=== PATIENT | male | born 1990 | race Caucasian/White ===

== ENCOUNTER 2024-12-04 21:12 | Emergency (ER) | payer OTHER, SELFPAY ==
[2024-12-04 21:15] VITALS: BP 136/91
[2024-12-04 21:30] LABS: % Basophils 0.4 % (0-2); % Eosinophils 0.2 % (0-6); % Immature Granulocytes 0.2 % (0-0.5); % Lymphocytes 7.3 % (20.5-51.1); % Monocytes 6.4 % (1.7-9.3); % Neutrophils 85.5 % (42.2-75.2); Absolute Basophils 0.1 10^3/uL (0-0.2); Absolute Lymphocytes 0.9 10^3/uL (1.2-3.4); Absolute Monocytes 0.8 10^3/uL (0.1-0.6); Hematocrit 42.3 % (39.0-52.0); Hemoglobin 15.2 g/dL (13.0-18.0); Mean Corp Hgb Conc. 35.9 g/dL (33.0-37.0); Mean Corpuscular Hgb 32.4 pg (27.0-31.0); Mean Corpuscular Volume 90.2 fL (80.0-94.0); Mean Platelet Volume 8.9 fL (7.4-10.4); Nucleated Red Blood Cells % 0 % (-); Platelet Count 288 10^3/uL (130-400); Red Blood Cell Count 4.69 10^6/uL (4.70-6.10); Red Cell Dist. Width 12.5 % (11.5-14.5); White Blood Cell Count 12.9 10^3/uL (4.8-10.8)
[2024-12-04 21:45] LABS: ALT (SGPT) 148 U/L (0-50); AST (SGOT) 60 U/L (17-59); Albumin 5.4 g/dl (3.5-5.0); Alkaline Phosphatase 121 U/L (38-126); Blood Urea Nitrogen 12 mg/dl (9-20); Calcium 10.1 mg/dl (8.4-10.2); Carbon Dioxide 28 mmol/L (22-30); Chloride 101 mmol/L (98-107); Glucose 104 mg/dl (70-99); Potassium 4.2 mmol/L (3.5-5.1); Sodium 140 mmol/L (135-145); Total Bilirubin 0.8 mg/dl (0.2-1.3); eGFR > 60.00
[2024-12-04 21:49] VITALS: BP 150/90
[2024-12-04 21:57] LABS: NT-proBNP < 20.0 pg/ml; Troponin I < 0.012 ng/ml
[2024-12-04 22:00] VITALS: BP 150/99
[2024-12-04 23:00] VITALS: BP 147/96
--- NOTE | 2024-12-04 23:13 | ED.GENMED ---
History of Present Illness
General
Chief Complaint: Heart Rate Problem
Time Seen by Provider: 12/04/24 21:51
History of Present Illness
History of Present Illness:
34-year-old male with no past medical history presents to the emergency department for evaluation of sudden onset of heart palpitations developing while seated and watching TV. Symptoms lasted approximately 20 to 30 minutes before resolving
spontaneously. He states that he felt chills during that time however does not feel the symptoms currently. He did monitor his heart rate on his Apple Watch which was reading as high as 180 bpm and also reportedly used a family members [employer]
mobile which informed him that there is no evidence of atrial fibrillation. He denies any objective or subjective fevers, denies any chest pain or shortness of breath, denies any stimulant use. He does take Adderall but this is not a new
medication for him.
Past History
Past History
ED Past Medical History: None and Psychiatric
ED Past Surgical History: None
Patient has exhibited threatening behavior?: No
Social History
Tobacco: Non-smoker
Personal: Single
Living: with family
Employment: Employed
Review of Systems
Review of Systems
Allergies reviewed?: Yes
All Other Systems: ROS reviewed and negative except as documented in HPI and ROS
Phy Exam
Physical Exam
Physical Exam:
GEN: Well appearing, NAD, WDWN
HEENT: Oral mucosa moist, no scleral icterus
Cardiac: Tachycardic/regular, no murmur
Lung: No respiratory distress, no tachypnea
MSK: No gross deformity or injuries
Skin: Good color, no pallor or jaundice, no rashes
Neuro: AO x3, moves all extremities freely
Psych: Calm, cooperative
Course
Orders/Labs/Results
Orders:
Orders
12/04/24 21:13
Electrocardiogram (*1) Urgent
Reason for Study: Other
Other Reason for Exam: Respiratory Distress
Cardiac Monitoring- Treatment ONCE
EKG- Treatment ONCE
IV Insert/Care/Rem.- Treatment PRN
CR Chest - 2 Views Urgent
Comment:
Reason For Exam: respiratory distress
O2 Therapy [RESP] Urgent
Titrate/Wean O2 to maintain O2 sat greater than (%): 93
Special Instructions: TO MAINTAIN CONTINUOUS O2 SATS >/= 93%
Pulse Ox/cont/shift [RESP] Urgent
Quantity: 1
Special Instructions: continuous pulse ox
12/04/24 21:24
Complete Blood Count/With Diff Urgent
Comprehensive Metabolic Panel Urgent
NT-proBNP Urgent
TSH Reflex To Free T4 Urgent
Comment: ADD ON
Troponin I Urgent
12/04/24 22:09
Add On- LAB Urgent
Tests Added?: TSH w reflex
Abnormal Lab Results
12/04/24
21:24
WBC 12.9 H 10^3/uL
(4.8-10.8)
RBC 4.69 L 10^6/uL
(4.70-6.10)
MCH 32.4 H pg
(27.0-31.0)
Absolute Neuts (auto) 11.0 H 10^3/uL
(1.4-6.5)
Absolute Lymphs (auto) 0.9 L 10^3/uL
(1.2-3.4)
Absolute Monos (auto) 0.8 H 10^3/uL
(0.1-0.6)
Neutrophils % 85.5 H %
(42.2-75.2)
Lymphocytes % 7.3 L %
(20.5-51.1)
Glucose 104 H mg/dl
(70-99)
AST 60 H U/L
(17-59)
ALT 148 H U/L
(0-50)
Albumin 5.4 H g/dl
(3.5-5.0)
12/04/24 21:24
12/04/24 21:24
Vital Signs
Initial and Last Documented VS:
Initial Vital Signs
Temp Pulse Resp BP Pulse Ox
100.8 F H 130 16 136/91 97
12/04/24 21:15 12/04/24 21:15 12/04/24 21:15 12/04/24 21:15 12/04/24 21:15
Last Documented Vital Signs
Temp Pulse Resp BP Pulse Ox
99.3 F 108 22 147/96 97
12/04/24 22:20 12/04/24 23:00 12/04/24 23:00 12/04/24 23:00 12/04/24 23:00
MDM/Problems Addressed
MDM/Problems Addressed:
Patient with no evidence of further cardiac. Labs are reassuring. Interestingly he was noted to be febrile on arrival however this resolved without antipyretics being given, he has no infectious signs or symptoms at this time. Mild transaminitis
likely due to alcohol intake yesterday. Thyroid test pending at time of discharge, doubt thyroid storm clinic. I suspect this may have been an SVT based on the patient's report of fast heart rates greater than 180, educated on supportive care and
need for follow-up should symptoms persist
*Critical Care Note
Total Time (30-74mins, 75-104mins- exclusive of procedures): Not Applicable
ED Attending Note
-
Portions of this chart may have been created with voice recognition software.� Occasional wrong word or��sound alike� substitutions may have occurred due to the inherent limitations of voice recognition software.
Discharge Plan
Departure
Patient Disposition: Home (Routine Discharge)
Date of Disposition: 12/04/24
Time of Disposition: 23:23
Patient with high blood pressure during this ER visit?: No
Discharge Problem:
Heart palpitations
Instructions: Palpitations (DC)
Prescriptions:
No Action
dextroamphetamine-amphetamine [Adderall] 30 MG tablet
30 mg PO DAILY
Referrals:
Yuli Souza CRNP [Family Provider] -
Activity Restrictions/Additional Instructions:
Avoid excessive use of stimulants or caffeine. Monitor for recurrent symptoms and try to capture the episode on your Apple watch EKG or [employer] mobile. If symptoms become more problematic please follow-up as an outpatient with a flight service agent
however this is not necessary right away
Interventions
Interventions:
*Risk Screen - Suicide Last Done: 12/04/24 21:17
*Neglect/Abuse Screening Last Done: 12/04/24 21:17
ED- Cardiac Assessment Last Done: 12/04/24 22:28
ED- Pulmonary Assessment Last Done: 12/04/24 22:28
Discharge Date and Time
Print Language: CROATIAN
[2024-12-04 23:17] LABS: TSH Reflex To Free T4 0.95 uIU/ml (0.47-4.68)
== END 2024-12-04 23:36 | disposition home or self-care (01) ==
LOC: EMR 21:12
PROVIDERS: EMERGENCY PHYSICIAN Emergency Medicine; FAMILY PHYSICIAN Nurse Practitioner Family
DX: R00.2 Palpitations (principal); R74.01 Elevation of levels of liver transaminase levels; F10.90 Alcohol use, unspecified, uncomplicated
CPT/HCPCS: 99284; 71046; 80053; 83880; 84443; 84484; 85025; 93005

== ENCOUNTER 2025-03-05 15:23 | Day surgery (SDC) | payer OTHER, SELFPAY ==
[2025-03-05] VITALS (9 sets, daily range): BP systolic 115–142; BP diastolic 59–93; BMI 28.0
[2025-03-05 10:00] LABS: Hematocrit 43.2 % (39.0-52.0); Hemoglobin 15.7 g/dL (13.0-18.0); Mean Corp Hgb Conc. 36.3 g/dL (33.0-37.0); Mean Corpuscular Volume 89.4 fL (80.0-94.0); Nucleated Red Blood Cells % 0 % (-); Platelet Count 266 10^3/uL (130-400); Red Cell Dist. Width 12.3 % (11.5-14.5)
--- NOTE | 2025-03-05 10:33 | ED.GENMED ---
History of Present Illness
General
Chief Complaint: Abdominal Symptoms
Source: patient
Exam Limitations: none
Time Seen by Provider: 03/05/25 09:44
Nursing documentation reviewed up to this point in time: agreed with
History of Present Illness
History of Present Illness:
SEE MDM
Past History
Past History
ED Past Medical History: None and Psychiatric
ED Past Surgical History: Other (hernia)
Patient has exhibited threatening behavior?: No
Social History
Tobacco: Non-smoker
Personal: Single
Living: with family
Employment: Employed
Review of Systems
Review of Systems
Allergies reviewed?: Yes
All Other Systems: Not applicable
Phy Exam
Physical Exam
Physical Exam:
see MDM
Course
Orders/Labs/Results
Orders:
Orders
03/05/25 09:52
Complete Blood Count/With Diff Urgent
Comprehensive Metabolic Panel Urgent
Lipase Urgent
03/05/25 10:14
CT Abd/Pel (IV only)-DH only Urgent
Comment:
Reason For Exam: RLQ pain
03/05/25 10:22
0.9% Sodium Chloride 1000 ml [Nss] 1,000 ml IV BOLUS
Morphine Sulfate 4 mg IV NOW STA
03/05/25 11:59
Piperacillin/Tazo 3.375 Gram [Zosyn] 3.375 gram in 50 ml IV NOW
03/05/25 12:28
HYDROmorphone [Dilaudid] 1 mg IV NOW STA
Abnormal Lab Results
03/05/25
09:52
MCH 32.5 H pg
(27.0-31.0)
Absolute Neuts (auto) 8.4 H 10^3/uL
(1.4-6.5)
Absolute Lymphs (auto) 1.0 L 10^3/uL
(1.2-3.4)
Absolute Monos (auto) 0.7 H 10^3/uL
(0.1-0.6)
Neutrophils % 82.5 H %
(42.2-75.2)
Lymphocytes % 9.8 L %
(20.5-51.1)
Glucose 114 H mg/dl
(70-99)
Calcium 10.3 H mg/dl
(8.4-10.2)
AST 61 H U/L
(17-59)
ALT 199 H U/L
(0-50)
Albumin 5.4 H g/dl
(3.5-5.0)
03/05/25 09:52
03/05/25 09:52
Vital Signs
Initial and Last Documented VS:
Initial Vital Signs
Temp Pulse Resp BP Pulse Ox
36.9 C 92 16 135/93 98
03/05/25 09:35 03/05/25 09:35 03/05/25 09:35 03/05/25 09:35 03/05/25 09:35
Last Documented Vital Signs
Temp Pulse Resp BP Pulse Ox
36.9 C 80 16 142/91 99
03/05/25 09:35 03/05/25 12:00 03/05/25 12:00 03/05/25 12:00 03/05/25 12:00
MDM/Problems Addressed
Differential Diagnosis Includes:
see mdm
MDM/Problems Addressed:
Note:
CHIEF COMPLAINT(S)
Abdominal pain.
HISTORY OF PRESENT ILLNESS
The patient is a 34-year-old male who presents with acute onset of abdominal pain, which began at 2 a.m. and woke him up from sleep. The pain has been constant, with intermittent jolts of increased severity. The patient describes the pain as
localized without radiating to the back. He reports experiencing chills last night but no associated fever, nausea, or vomiting. The pain worsens with walking and is uncomfortable to touch the abdomen. He denies diarrhea but notes a sensation of
pressure to urinate without dysuria. The patient rates his pain as severe, describing it as 8 out of 10. He has not taken any medication for the pain.
The patients bowel movements have been described as normal, last bm 4 am. He has a past surgical history of hernia repair but denies any other abdominal surgeries.
tried a dose of pepto this morning without relief
last ate 8 pm last night
SOCIAL HISTORY
no drug/alcohol history
PHYSICAL EXAM
GENERAL: Alert , in no apparent distress
EYE: pupils equal and reactive
NECK: Supple
ENT: o/p clr, mmm.
CARDIAC: Regular rate and rhythm .
LUNGS: Clear breath sounds bilaterally, no acute respiratory distress, no wheezes/rales/rhonchi
ABDOMEN:SOFT, MILD DISTENSION, TENDER RLQ SIGNIFICANTLY; + ROSVIGS; MILD GUARDING; NORMAL BOWEL SOUNDS
NEUROLOGICAL: Alert and oriented, no focal neuro deficits
SKIN: Warm and dry, skin intact.
MUSCULOSKELETAL: No edema, well perfused.
PSYCH: Normal and appropriate interaction.
PROBLEM LIST
Acute: Abdominal pain, likely appendicitis.
Chronic: History of hernia repair.
PLAN
1. Initiate IV fluids for hydration.
2. Administer pain management, considering stronger analgesics such as morphine or hydromorphone.
3. Order a computed tomography scan of the abdomen to further investigate the cause of pain, with attention to ruling out appendicitis.
4. The patient is to remain nil per os (nothing by mouth) in preparation for potential surgical intervention pending diagnostic results.
DIFFERENTIAL DIAGNOSIS
The Differential Diagnosis includes, in no particular order and is not limited to:
1. Appendicitis
2. Gastroenteritis
3. Peptic ulcer disease
4. Pancreatitis
5. Urinary tract infection
6. Diverticulitis
7. Gallstones
8. Hernia
9. Inflammatory bowel disease
10. Constipation
CT shows early acute appendicitis
d/w dr. amaya from surgery who saw pt and will admit
zosyn
*Pulse Oximetry
SaO2: 98
Oxygen Mode of Delivery: Room air
Patient hypoxic: no (99)
*Critical Care Note
Total Time (30-74mins, 75-104mins- exclusive of procedures): Not Applicable
ED Attending Note
-
Portions of this chart may have been created with voice recognition software.� Occasional wrong word or��sound alike� substitutions may have occurred due to the inherent limitations of voice recognition software.
Discharge Plan
Departure
Patient Disposition: Admit
Date of Disposition: 03/05/25
Time of Disposition: 12:58
Admit to: Med/Surg
Admit to doctor: monique
Presentation/result/management discussed w/ accepting MD/DO: monique
Patient with high blood pressure during this ER visit?: No
Condition: Fair
Covid-19: Not Applicable
Discharge Problem:
Acute appendicitis
Prescriptions:
No Action
dextroamphetamine-amphetamine [Adderall] 30 MG tablet
30 mg PO MOTUWETHFR
Referrals:
Yuli Souza CRNP [Family Provider, Family Practice]
Interventions
Interventions:
*Risk Screen - Suicide Last Done: 03/05/25 09:35
*General Assessment Last Done: 03/05/25 09:52
*Neglect/Abuse Screening Last Done: 03/05/25 09:35
DO-Egylwn-Kftkgyphsj Assessment Last Done: 03/05/25 09:51
Discharge Date and Time
Print Language: ISRAELI
[2025-03-05] MEDS: MORPHINE SULFATE 4 MG IV (10:38)
[2025-03-05] MEDS: NSS 1000 IV ×2 (10:39→19:18)
[2025-03-05 10:43] LABS: ALT (SGPT) 199 U/L (0-50); AST (SGOT) 61 U/L (17-59); Albumin 5.4 g/dl (3.5-5.0); Alkaline Phosphatase 114 U/L (38-126); Blood Urea Nitrogen 12 mg/dl (9-20); Calcium 10.3 mg/dl (8.4-10.2); Carbon Dioxide 23 mmol/L (22-30); Chloride 106 mmol/L (98-107); Estimated Creatinine Clearance > 125 ml/min; Glucose 114 mg/dl (70-99); Lipase 37 U/L (23-300); Potassium 4.1 mmol/L (3.5-5.1); Sodium 137 mmol/L (135-145); Total Protein 8.1 g/dl (6.3-8.2); eGFR > 60.00
[2025-03-05] MEDS: DILAUDID 1 MG IV (12:33)
[2025-03-05] MEDS: ZOSYN 50 IV (12:38)
--- NOTE | 2025-03-05 12:47 | HPS.HSE ---
Family Physician
-
Family Physician: ANGELY Castellano
Chief Complaint
-
RLQ pain
History of Present Illness
This is a 34 yo male with a h/o inguinal hernia repair at the age of 6 who presents with abdominal pain which began around 2am awakening him from sleep with chills. He notes the pain was more central but then localized to the RLQ. He denies
associated nausea or vomiting. He does note abdominal bloating. He tried Pepto Bismol without much benefit as was able to have a BM around 4am without relief either. On exam, he is markedly tender to the RLQ.
Medical History
Past Medical History
Past Medical History: Reports Psychiatric (ADD)
Past Surgical History: Reports Other (Inguinal hernia repair 1995)
Social History
Tobacco: Non-smoker
Alcohol: None
Personal: Partner
Living: Other (with significant other)
Employment: Employed
Family History
Family History: Not pertinent
Allergies / Home Medications
Allergies reflects when Allergies were last updated in [employer].
Home Medications with original date entered in [employer]
Allergy/Medication List:
Patient Allergies
Allergy/AdvReac Type Severity Reaction Status Date / Time
No Known Allergies Allergy Verified 03/05/25 09:37
�Medication �Instructions �Recorded �Confirmed �Type
dextroamphetamine-amphetamine 30 30 mg PO MOTUWETHFR 06/25/18 03/05/25 History
mg tablet (Adderall)
Review of Systems
-
History Source: Patient
A 12 point ROS was completed and negative except as noted: Yes
Physical Exam
Vital Signs
Vital Signs
Temp Pulse Resp BP Pulse Ox
98.4 F 80 16 142/91 99
03/05/25 09:35 03/05/25 12:00 03/05/25 12:00 03/05/25 12:00 03/05/25 12:00
Physical Exam
General: Well Developed and Well Nourished
HEENT: Moist mucous membranes
Respiratory: Non Labored Respirations
GI: Soft, Tender (RLQ with guarding) and Distended (mild)
Skin: Warm and Dry
Neuro: Awake, Alert and AO x 3
Psych: Calm
Laboratory Results
-
03/05/25 09:52
03/05/25 09:52
Laboratory Results
Total Bilirubin 0.9 mg/dl (0.2-1.3) 03/05/25 09:52
AST 61 U/L (17-59) H 03/05/25 09:52
ALT 199 U/L (0-50) H 03/05/25 09:52
Alkaline Phosphatase 114 U/L (38-126) 03/05/25 09:52
Lipase 37 U/L (23-300) 03/05/25 09:52
Data Reviewed
-
CT Scan: Image Personally Visualized and interpreted, Report Reviewed by me, Discussed with Physician, Discussed with Nurse and Discussed with Patient
Lab Data: Labs Reviewed by me, Discussed with Physician and Discussed with Patient
Impression/Plan
-
IMPRESSION: 34 yo male presenting with approximately 12h of RLQ pain with associated chills with marked tenderness on exam. Afebrile, stable vital signs. Normal WBC. CT imaging reviewed and consistent with early acute appendicitis.
PLAN:
Keep NPO
OR today for laparoscopic appendectomy
Analgesics prn
Started on IV Zosyn in ED
Dispo pending surgical findings
--- NOTE | 2025-03-05 13:29 | CM ---
CM reviewed chart, met with pt and his mother bedside in ED. Lives alone in 2 story home, [address], first floor Half BA,
BR/full BA second floor.
Independent in ADLs, personal care and ambulation at baseline. No DME.
PCP: Yuli Souza
[facility]: [facility]
Discharge plan: Anticipate home, no needs
--- NOTE | 2025-03-05 17:35 | W.IMMPOSTOP ---
Surgical Immed Post Op Note
-
Primary Surgeon: Jaylon Oates MD
Assisting Surgeon: ANGELY Woods
Pre-op Diagnosis: acute appendicitis
Post-op Diagnosis: same
Procedure Performed: laparoscopic appendectomy
Anesthesia Type: general plus local
Specimen / Cultures: appendix
Estimated Blood Loss: 20 cc
Complications: no immediate
Operative Findings: swollen inflamed but not perforated appendix
Will send to [facility].
Resume diet.
Anticipate dishcarge in am.
--- NOTE | 2025-03-05 18:29 | PTCARENOTE ---
pt to floor 1824, AOx3 girlfriend and mother present. 3 lap sites, glues CODY. 20g LW NSS 80. SCD's present. ordering Fulls liquids, bed low, HOB elevated. call bed in reach.
[2025-03-06] MEDS: ZOSYN 50 IV ×2 (00:20→05:43)
[2025-03-06 03:40] VITALS: BP 116/65
[2025-03-06 07:15] VITALS: BP 117/64
--- NOTE | 2025-03-06 09:52 | W.PN.GS2 ---
Addendum entered and electronically signed by Artem Oates MD 03/06/25 13:02:
I saw and examined the patient.
The PERSONAL INJURY PARALEGAL's note was reviewed and I agree with the note.
Comment:
Seen earlier with PERSONAL INJURY PARALEGAL.
Minimal incisional discomfort. Feeling better. Tolerating diet.
Vitals normal.
Abdomen soft with no incisional erythema. Incisions look good.
Okay for discharge.
Original Note:
Today's Communication / Plan
-
d/c to home
Assessment / Plan
-
34 yo male who presented with acute appendicitis now POD #1 Lap appi
AFVSS
Following expected post operative course
Plan:
Continue regular diet
Oral analgesics
Dispo planning
Subjective Data
-
Date of Service: March 06, 2025
Pt seen and examined at bedside with Dr. Oates. Denies n/v. Tolerating diet. Minimal incisional discomfort.
Objective Data
-
Intake and Output
03/05/25 03/06/25 03/07/25
06:59 06:59 06:59
Intake Total 1580 / 1580
Output Total 1100 / 1100
Balance 480 / 480
Intake:
Oral fluids 480 / 480
IV fluids (Total) 1100 / 1100
Normosol 100 / 100
Output:
Urine, Aest 300 / 300
Urine, Voided 800 / 800
Vital Signs
Temp Pulse Resp BP Pulse Ox
98.2 F 69 16 117/64 98
03/06/25 07:15 03/06/25 07:15 03/06/25 07:15 03/06/25 07:15 03/06/25 07:15
Lab Results
03/05/25 09:52
03/05/25 09:52
Calcium 10.3 mg/dl (8.4-10.2) H 03/05/25 09:52
Total Bilirubin 0.9 mg/dl (0.2-1.3) 03/05/25 09:52
AST 61 U/L (17-59) H 03/05/25 09:52
ALT 199 U/L (0-50) H 03/05/25 09:52
Alkaline Phosphatase 114 U/L (38-126) 03/05/25 09:52
Total Protein 8.1 g/dl (6.3-8.2) 03/05/25 09:52
Albumin 5.4 g/dl (3.5-5.0) H 03/05/25 09:52
Physical Exam
-
NAD
ABD soft, nd, mild incisional tenderness
Incisions with intact glue, no erythema
Patient has a east catheter: No
Patient has a central line: No
--- NOTE | 2025-03-06 09:54 | W.DS.TRANS ---
DC Summary - [place]
-
Discharge Instructions:
Discharge Diagnosis/Procedures Acute appendicitis status post laparoscopic
appendectomy
Diet As tolerated,Regular
Additional Diets Eat small meals at first as bloating is common
after appendicitis surgery
Activity No strenuous activity
Additional Activity Do not lift over 10lbs (gallon of milk) for the
next 2-3 weeks
Driving Restrictions No driving for 1 week
Bathing Restrictions OK to Shower
Wound Care Allow the glue to flake off your incisions on
its own over the next 2-3 weeks. Avoid scrubbing
or picking off.
Instructions:
Stand-Alone Forms:
Changes to Home Medications: No
Discharge Medications:
DC Medications w/original date entered in [employer]
dextroamphetamine-amphetamine 30 mg tablet (Adderall) 30 mg PO MOTUWETHFR 06/25/18
acetaminophen 325 mg tablet 650 mg (2 x 325 mg) PO Q4HPRN PRN mild pain #1 tab 03/06/25
ibuprofen 200 mg tablet 400 - 600 mg (2 - 3 x 200 mg) PO Q6HPRN PRN moderate pain #1 tab 03/06/25
oxycodone 5 mg tablet 5 mg PO Q4HPRN PRN breakthrough/severe pain #8 tabs 03/06/25
Home Medication Changes
Pending Results: No
[2025-03-06] MEDS: ZOSYN IV (11:14)
[2025-03-06] MEDS: NSS IV (11:14)
[2025-03-06 11:22] VITALS: BP 113/68
--- NOTE | 2025-03-06 11:50 | CM ---
Pt for dc today to home with family and no dc needs.
== END 2025-03-06 11:30 | disposition home or self-care (01) ==
LOC: SDS 15:23
PROVIDERS: ATTENDING PHYSICIAN Surgery; EMERGENCY PHYSICIAN Emergency Medicine; FAMILY PHYSICIAN Nurse Practitioner Family
DX: K35.80 Unspecified acute appendicitis (principal)
CPT/HCPCS: 44970; 74177; 80053; 83690; 85025; 88304; 96361; 96365; 96375; 99284; Q9967